=== PATIENT | female | born 1975 | race African-American/Black ===

== ENCOUNTER 2021-01-08 19:54 | Emergency (ER) | payer OTHER, MEDICAID ==
[~2021-01-08] VITALS: Ht 165 cm; Wt 86.0 kg
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
[2021-01-08] MEDS ORDERED: LACTATED RINGERS 1,000 ML IV ONE (20:15)
[2021-01-08 20:26] LABS: BASOPHILS % (AUTO) 0 % (0-10); EOSINOPHILS # (AUTO) 0.1 10^3/uL (0.0-0.3); EOSINOPHILS % (AUTO) 2 % (0-10); HEMATOCRIT 39 % (35-52); HEMOGLOBIN 11.9 g/dL (11.5-16.0); LYMPHOCYTES # (AUTO) 0.6 10^3/uL (1.0-4.0); LYMPHOCYTES % (AUTO) 12 % (12-44); MEAN CORPUSCULAR HEMOGLOBIN 28 pg (25-34); MEAN CORPUSCULAR HGB CONC 30 g/dL (32-36); MEAN CORPUSCULAR VOLUME 91 fL (80-99); MEAN PLATELET VOLUME 9.4 fL (9.0-12.2); MONOCYTES # (AUTO) 0.5 10^3/uL (0.0-1.0); MONOCYTES % (AUTO) 9 % (0-12); NEUTROPHILS # (AUTO) 4.1 10^3/uL (1.8-7.8); NEUTROPHILS % (AUTO) 77 % (42-75); PLATELET COUNT 258 10^3/uL (130-400); WHITE BLOOD COUNT 5.3 10^3/uL (4.3-11.0)
[2021-01-08 20:35] LABS: ALBUMIN 4.5 GM/DL (3.2-4.5); CHLORIDE 106 MMOL/L (98-107); POTASSIUM 3.7 MMOL/L (3.6-5.0); SODIUM 138 MMOL/L (135-145)
[2021-01-08 20:36] LABS: CALCIUM 9.4 MG/DL (8.5-10.1)
[2021-01-08 20:38] LABS: GLUCOSE 87 MG/DL (70-105); TOTAL PROTEIN 8.2 GM/DL (6.4-8.2)
[2021-01-08 20:39] LABS: BILIRUBIN,TOTAL 0.4 MG/DL (0.1-1.0); CARBON DIOXIDE 23 MMOL/L (21-32)
[2021-01-08 20:41] LABS: ALKALINE PHOSPHATASE 96 U/L (40-136); CREATININE SERUM 1.01 MG/DL (0.60-1.30); GFR ESTIMATED > 60; PROTHROMBIN TIME PATIENT 13.1 SEC (12.2-14.7)
[2021-01-08 20:42] LABS: BUN/CREATININE RATIO 14
[2021-01-08 20:44] LABS: ALANINE AMINOTRANSFERASE 8 U/L (0-55)
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
[2021-01-08] MEDS ORDERED: CYCLOBENZAPRINE 10 MG (FLEXERIL) TAB PO STA (20:49)
[2021-01-08] MEDS ORDERED: KETOROLAC 30 MG/ML VIAL IVP STA (20:49)
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
[2021-01-08 21:40] VITALS: BP 130/90
[2021-01-08] MEDS ORDERED: HYDROcodone/APAP 7.5 MG/325 MG (LORTAB, LORCET PLUS) TABLET PO ONE (21:45)
== END 2021-01-08 21:44 | disposition home or self-care (01) ==
LOC: EDUNIT# 19:57 → ER 19:58
DX: S80.01XA Contusion of right knee, initial encounter (principal); M54.5 Low back pain; M54.2 Cervicalgia; M79.10 Myalgia, unspecified site; M25.562 Pain in left knee; M25.551 Pain in right hip; R20.2 Paresthesia of skin; H54.8 Legal blindness, as defined in USA; Z88.1 Allergy status to other antibiotic agents; Z88.5 Allergy status to narcotic agent; Z88.8 Allergy status to other drugs, medicaments and biological substances; V49.60XA Unspecified car occupant injured in collision with unspecified motor vehicles in traffic accident, initial encounter
CPT/HCPCS: 36415; 70450; 71045; 72125; 72128; 72131; 80053; 85025; 85610; 85730